=== PATIENT | male | born 1965 | race Caucasian/White ===

== ENCOUNTER 2019-05-18 07:44 | Observation (INO) | payer OTHER ==
[~2019-05-18] VITALS: Ht 182.9 cm; Wt 109.9 kg
[~2019-05-18 07:44] MED LIST: APIX5TAB PO; ATOR10TA65 PO; CHOL100062 PO; INSU100I33 SC; METF500T24 PO
[2019-05-18] MEDS ORDERED: ACETAMINOPHEN 325 MG TAB PO PRN ×2 (08:30→14:00)
[2019-05-18] MEDS ORDERED: ONDANSETRON 4 MG INJ IV PRN ×2 (08:30→14:00)
[2019-05-18] MEDS ORDERED: morphine 4 MG/ML VIAL IV STA (11:27)
[2019-05-18] MEDS ORDERED: NACL 0.9% 3 ML SYG IV SCH (14:00)
[2019-05-18] MEDS ORDERED: NITROGLYCERIN (SL) 0.4 MG TAB SL PRN (14:00)
[2019-05-18] MEDS ORDERED: DEXTROSE 50% 50 ML SYRINGE IV PRN ×2 (14:30)
[2019-05-18] MEDS ORDERED: GLUCOSE GEL 15 GRAM TUBE BUCCAL PRN (14:30)
[2019-05-18] MEDS ORDERED: GLUCAGON 1 MG INJ IM PRN (14:30)
[2019-05-18] MEDS ORDERED: GLUCOSE GEL 15 GRAM TUBE PO PRN ×2 (14:30)
[2019-05-18] MEDS: morphine 2 MG INJ IV PRN ×2 (15:38→20:22)
[2019-05-18] MEDS ORDERED: INSULIN ASPART [NOVOLOG] 3 ML PEN SC SCH (18:00)
[2019-05-18] MEDS: INSULIN ASPART [NOVOLOG] 3 ML PEN SC SCH ×2 (18:00→21:00)
[2019-05-18 20:00] VITALS: BP 123/67; PULSE 67; RESP 18
[2019-05-18] MEDS ORDERED: INSULIN GLARGINE [LANTus] (100 UNITS/ML) SYG SC SCH (20:00)
[2019-05-18] MEDS: APIXABAN 5 MG TABLET PO SCH (20:21)
[2019-05-18] MEDS: GABAPENTIN 300 MG CAP PO SCH (20:21)
[2019-05-18] MEDS: FAMOTIDINE 20 MG TAB PO SCH (20:21)
[2019-05-18] MEDS ORDERED: ATORVASTATIN 10 MG TAB PO SCH (21:00)
[2019-05-18 22:34] VITALS: Ht 182.9 cm; Wt 109.9 kg
[2019-05-18 23:31] VITALS: BP 131/76; PULSE 61; RESP 18
[2019-05-19] MEDS ORDERED: ACCU-CHEK XX SCH (02:00)
[2019-05-19 03:41] VITALS: BP 126/71; PULSE 95; RESP 18
[2019-05-19] MEDS: morphine 2 MG INJ IV PRN (06:41)
[2019-05-19 07:10] VITALS: BP 142/81; PULSE 64; RESP 18
[2019-05-19] MEDS: INSULIN ASPART [NOVOLOG] 3 ML PEN SC SCH (07:55)
[2019-05-19] MEDS: FAMOTIDINE 20 MG TAB PO SCH (08:17)
[2019-05-19] MEDS: GABAPENTIN 300 MG CAP PO SCH (08:17)
[2019-05-19] MEDS: APIXABAN 5 MG TABLET PO SCH (08:17)
[2019-05-19] MEDS ORDERED: CHOLECALCIFEROL 1,000 UNIT TAB PO SCH (09:00)
[2019-05-19] MEDS ORDERED: ASPIRIN 81 MG TAB PO SCH (09:00)
== END 2019-05-19 09:25 | disposition left against medical advice (07) ==
LOC: E/R 07:44 → TEL 08:19 → CANRESERV 16:57
PROVIDERS: ADMIT Internal Medicine; ATTEND Internal Medicine
DX: R07.89 Other chest pain (principal); I10 Essential (primary) hypertension; E78.00 Pure hypercholesterolemia, unspecified; Z86.718 Personal history of other venous thrombosis and embolism; Z79.01 Long term (current) use of anticoagulants; E11.40 Type 2 diabetes mellitus with diabetic neuropathy, unspecified; E66.9 Obesity, unspecified; Z68.32 Body mass index [BMI] 32.0-32.9, adult; Z59.0 Homelessness; Z91.19 Patient's noncompliance with other medical treatment and regimen; Z82.49 Family history of ischemic heart disease and other diseases of the circulatory system; Z79.4 Long term (current) use of insulin
CPT/HCPCS: 36415; 80048; 80053; 80061; 82550; 82553; 82962; 83036; 83735; 84100; 84484; 85025; 93005; 93306; 93970; J1815; J2270; Z7500; Z7502; Z7610; G0378